=== PATIENT | female | born 1995 | race Caucasian/White ===

== ENCOUNTER 2016-12-26 12:34 | Emergency (ER) | payer OTHER ==
[2016-12-26] MEDS ORDERED: NS 1,000 ML IV ONE ×2 (13:41→15:13)
[2016-12-26] MEDS ORDERED: ZOFRAN IV ONE ×2 (13:41→17:28)
[2016-12-26 14:30] LABS: URINE MICRO REVIEW NEEDED? NO; URINE SOURCE CLEAN CATCH
[2016-12-26 14:32] LABS: MANUAL DIFF NEEDED? NO
[2016-12-26 14:38] LABS: BASO% 0.4 % (0.0-0.8); EOS# 0.08 X1000 (0.0-0.7); EOS% 0.9 % (0.0-10.0); HEMATOCRIT 39.4 % (37.0-47.0); LYMPH# 1.56 X1000 (1.2-3.4); LYMPH% 18.4 % (20.5-51.1); MCH 28.2 PG (27-31); MCV 85.5 FL (81-99); MONO# 0.78 X1000 (0.11-0.59); MONO% 9.2 % (1.7-9.3); MPV 10.1 FL (7.4-10.4); NEUT% 71.1 % (42.2-75.2); PLT 238 X1000 (130-400); RBC 4.61 XMIL (4.2-5.4)
[2016-12-26 14:41] LABS: BILIRUBIN URINE NEGATIVE (NEGATIVE); BLOOD URINE NEGATIVE (NEGATIVE); COLOR YELLOW; GLUCOSE URINE NEGATIVE (NEGATIVE); LEUKOCYTES URINE NEGATIVE (NEGATIVE); NITRITE URINE NEGATIVE (NEGATIVE); PH URINE 5.5; PROTEIN URINE NEGATIVE (NEGATIVE); SP GRAVITY URINE 1.012; TURBIDITY URINE CLEAR (CLEAR); UR EPITHELIAL CELLS <10 /HPF (<10); URINE BACTERIA 2+ /HPF; URINE CULTURE NEEDED? YES; URINE RBC <10 /HPF (<10); URINE WBC <10 /HPF (<10); UROBILINOGEN URINE NORMAL (NORMAL)
[2016-12-26 15:02] LABS: ALBUMIN 4.2 g/dL (3.5-5.0); CALCIUM 9.1 mg/dL (8.8-10.2); POTASSIUM 3.4 mmol/L (3.5-5.1); TOTAL BILIRUBIN 0.39 mg/dL (0.20-1.00); TOTAL PROTEIN 7.8 g/dL (6.3-8.3)
--- NOTE | 2016-12-26 15:14 | Diag Imaging Result Document ---
PROCEDURE NAME: FLAT/UPRIGHT ABD/1 VIEW CHEST - 12/26/2016 FRONTAL CHEST X-RAY AND 2 VIEWS OF THE ABDOMEN: COMPARISON: None. FINDINGS: The chest is clear. There is a nonobstructive bowel gas pattern. No free air or abnormal calcifications. IMPRESSION: No acute disease.
--- NOTE | 2016-12-26 15:35 | PROVIDER DOCUMENTATION ---
HPI-Abdominal Pain/GI Problem - General Chief Complaint: Nausea Stated Complaint: DEHYDRATED Time Seen by Provider: 12/26/16 13:22 Source: patient Allergies/Adverse Reactions: Patient Allergies Allergy/AdvReac Type Severity Reaction Status Date / Time amoxicillin Allergy Unknown Verified 12/26/16 14:18 azithromycin Allergy Unknown Verified 12/26/16 14:18 Home Medications: Home Medication List Medication Instructions Recorded Confirmed Last Taken Type Ondansetron [Zofran] 4 mg PO Q6H PRN PRN #20 tablet 12/26/16 Unknown Rx - History of Present Illness-ABD Nature of Presenting Problems: 21 year old WF presents with c/o 4 day history of nausea, vomiting and abd pain. pt reports she started with nausea Saturday night. was evaluated at an urgent care on Saturday morning, diagnosed with UTI, flu, started on bactrim and tamiflu. she report she worsened, was rte-evaluated at urgent care on Saturday, told to stop the bactrim an discontinue tamiflu. pt reports it has worsened. pt reports she has vomited all day, every day since Saturday. She was seen again at the today, they gil labs, her Cr was elevated and they sent her here for fluids and evaluation. pt reports the abd pain has worsened over the 4 days of vomiting. Abdominal Pain Onset Location: reports: RLQ, LLQ Pain Radiation: reports: no radiation Quality of Pain: reports: aching, cramping, dull Severity in ED: reports: mild Onset/Duration: reports: 4 days ago Timing: reports: still present, constant, getting worse Activities at Onset: reports: none Exposure to sick contacts?: No Modifying Factors: improves with: nothing Associated Symptoms: reports: back/neck pain, fever/chills, nausea, vomiting Last BM: 2 days ago Dark Stools Present?: reports: none noticed. denies: maroon, black, tarry, bright red blood Rectal Bleeding: reports: none. denies: bleeding without stool, bright red blood on paper, blood mixed with stool, blood streaks on stool, bloody diarrhea # of Diarrhea Episodes: 0 Rectal Pain: reports: none Emesis Description: reports: clear Bruising or Bleeding Gums?: No Similar Symptoms Previously?: No Recently seen or treated by another doctor?: No Review of Systems - Adult - REVIEW OF SYSTEMS - ADULT Constitutional: reports: see HPI, chills, fever, fatique Eyes: reports: no symptoms reported. denies: discharge, blurred vision, double vision, redness Ears, Nose, Mouth & Throat: reports: no symptoms reported. denies: ear discharge, ear pain, nose pain, loose teeth, throat pain, throat swelling Cardiovascular: reports: no symptoms reported. denies: chest pain, palpitations , syncope Respiratory: reports: no symptoms reported. denies: chronic cough, cough, shortness of breath, wheezing Gastrointestinal: reports: see HPI, abdominal pain, nausea, poor appetite, vomiting. denies: hematemesis, constipation, diarrhea, difficulty swallowing, frequent heartburn, rectal bleeding Genitourinary: reports: no symptoms reported. denies: dysuria, hematuria, urgency Musculoskeletal: reports: no symptoms reported. denies: bone pain, joint pain, joint swelling, neck pain Integumentary: reports: no symptoms reported. denies: hives, rash, skin sores/ ulcer Neurological: reports: no symptoms reported. denies: ataxia, dizziness/vertigo , syncope Psychiatric: reports: no symptoms reported Endocrine: reports: no symptoms reported Hematologic/Lymphatic: reports: no symptoms reported Allergic/Immunologic: reports: no symptoms reported All Other Systems: Reviewed and Negative Past History - Adult - PAST MEDICAL HISTORY-ADULT Review of Records: reports: Old Records Reviewed, Nursing Assessment Review, Medications Reviewed, Social history reviewed & non-contributory. Major Childhood Illnesses: reports: denies history Cardiovascular: reports: denies history Respiratory: reports: denies history Gastrointestinal: reports: denies history Obstetrical/Gynecological: reports: denies history Genitourinary: reports: denies history Musculoskeletal: reports: denies history Neurological: reports: denies history Endocrine/Immune: reports: denies history Other Conditions: reports: denies history - FAMILY HISTORY Family History: reviewed, not pertinent - SOCIAL HISTORY Smoking: denies, non-smoker Substance Use: none/never Alcohol Use Frequency: sober (former use) Physical Exam-General - PHYSICAL EXAM-ADULT Initial Vital Signs Reviewed: Yes - CONSTITUTIONAL General Appearance: appears well, alert, mild distress. negative: no apparent distress, moderate distress, severe distress, lethargic, slow to respond, obtunded, combative - EYES Eyes: pink conjunctivae, conjuctival exudate. negative: pale conjunctivae, sclera injected, scleral icterus, subconjunctival hemorrhage - HEAD, EARS, NOSE, MOUTH & THROAT HENMT: normocephalic/atraumatic, moist mucous membranes, normal ENT inspection. negative: TMs normal, pharynx normal, pharyngeal erythema, tonsillar exudate - NECK Neck: non-tender, full range of motion, supple, normal inspection. negative: C- spine tenderness, limited range of motion, tender lateral, tender midline - RESPIRATORY Respiratory: chest non-tender, lungs clear, normal breath sounds, no pleuratic chest pain, no respiratory distress, no accessory muscle use. negative: respiratory distress, decreased breath sounds, accessory muscle use, crackles, rales, rhonchi, stridor, wheezing - CARDIOVASCULAR Cardiovascular: normal peripheral pulses, regular rate, rhythm - GASTROINTESTINAL (ABDOMEN) Abdominal Exam: normal bowel sounds, soft, no organomegaly, no pulsatile mass, tenderness (LLQ, RLQ). negative: non tender, abnormal bowel sounds, distended, guarding, rigid, rebound, hernia, mass, hepatomegaly, spleenomegaly, McBurney's point tenderness, Sparrow's sign, obturator sign, prominent aortic pulsations, psoas, Rovsing's sign - GENITOURINARY Female Genitalia/Pelvic Exam: deferred Rectal Exam: deferred Hemoccult Exam: deferred - LYMPHATIC Lymphatic: no adenopathy - MUSCULOSKELETAL Back Exam: normal inspection, no CVA tenderness, no vertebral tenderness, vertebral tenderness (lumbar tenderness). negative: CVA tenderness, decreased range of motion, swelling Extremity: normal range of motion, non-tender, normal gait, normal inspection, no pedal edema, no calf tenderness, normal capillary refill Peripheral Pulses: radial (R): 3+, radial (L): 3+, dorsalis-pedis (R): 3+, dorsalis-pedis (L): 3+ - SKIN Integumentary: normal color, normal turgor, warm/dry. negative: pallor, petechiae, purpura, rash, swelling, tenderness - NEUROLOGIC Neurologic: grossly normal, no motor/sensory deficits - PSYCHIATRIC Psych/Mental Status: normal mood/affect, normal thought content, normal thought process, oriented x 3 Progress - PLAN OF CARE/RESULTS Progress/Plan/Lab Results: Laboratory Tests 12/26/16 12/26/16 12/26/16 14:07 14:07 14:24 WBC 8.46 RBC 4.61 Hgb 13.0 Hct 39.4 MCV 85.5 MCH 28.2 MCHC 33.0 RDW Std Deviation 12.9 Plt Count 238 MPV 10.1 Immature Gran % (Auto) 0.0 Neut % (Auto) 71.1 Lymph % (Auto) 18.4 L [place] % (Auto) 9.2 Eos % (Auto) 0.9 Baso % (Auto) 0.4 Immature Gran # (Auto) 0.00 Neut # (Auto) 6.01 Lymph # (Auto) 1.56 [place] # (Auto) 0.78 H Eos # (Auto) 0.08 Baso # (Auto) 0.03 Sodium 137 Potassium 3.4 L Chloride 98 Carbon Dioxide 25 Anion Gap 14 BUN 20 Creatinine 2.3 H Estimated GFR/1.73 m2 26 BUN/Creatinine Ratio 9 Glucose 93 Calculated Osmolality 276 Calcium 9.1 Total Bilirubin 0.39 AST 14 ALT 10 Alkaline Phosphatase 96 Total Protein 7.8 Albumin 4.2 Globulin 3.6 Albumin/Globulin Ratio 1.2 Amylase 37 Lipase 13 Urine Source CLEAN CATCH Urine Color YELLOW Urine Turbidity CLEAR Urine pH 5.5 Ur Specific [place] 1.012 Urine Protein NEGATIVE Ur Glucose (Stick) NEGATIVE Ur Ketones (Stick) 10 A Urine Blood NEGATIVE Urine Nitrite NEGATIVE Urine Bilirubin NEGATIVE Urobilinogen Dipstick NORMAL Urine Leukocytes NEGATIVE Urine WBC (Auto) <10 Urine RBC (Auto) <10 U Epithel Cells (Auto) <10 Urine Bacteria (Auto) 2+ 12/26/16 16:42 WBC RBC Hgb Hct MCV MCH MCHC RDW Std Deviation Plt Count MPV Immature Gran % (Auto) Neut % (Auto) Lymph % (Auto) [place] % (Auto) Eos % (Auto) Baso % (Auto) Immature Gran # (Auto) Neut # (Auto) Lymph # (Auto) [place] # (Auto) Eos # (Auto) Baso # (Auto) Sodium 140 Potassium 3.6 Chloride 107 Carbon Dioxide 24 L Anion Gap 9 BUN 17 Creatinine 2.1 H Estimated GFR/1.73 m2 29 BUN/Creatinine Ratio 8 Glucose 127 H Calculated Osmolality 283 Calcium 7.9 L Total Bilirubin 0.28 AST 12 ALT 8 L Alkaline Phosphatase 78 Total Protein 6.5 Albumin 3.6 Globulin 2.9 Albumin/Globulin Ratio 1.2 Amylase Lipase Urine Source Urine Color Urine Turbidity Urine pH Ur Specific [place] Urine Protein Ur Glucose (Stick) Ur Ketones (Stick) Urine Blood Urine Nitrite Urine Bilirubin Urobilinogen Dipstick Urine Leukocytes Urine WBC (Auto) Urine RBC (Auto) U Epithel Cells (Auto) Urine Bacteria (Auto) Orders Category Date Time Status ED: Urine Bedside ORDERED Care 12/26/16 13:40 Active Saline Loc DIRECTED Care 12/26/16 13:40 Active NPO Diet 12/26/16 13:40 Active ABDOMEN/PELVIS W/O CONTRAST [CT] Stat Exams 12/26/16 15:36 Draft FLAT/UPRIGHT ABD/1 VIEW CHEST [RAD] Stat Exams 12/26/16 13:48 Draft AMYLASE [CHEM] Stat Lab 12/26/16 14:07 Completed CBC WITH ELECTRONIC DIFF [HEME] Stat Lab 12/26/16 14:07 Completed CMP [COMPREHENSIVE METABOLIC PANEL] [CHEM] Stat Lab 12/26/16 16:42 Completed COMPREHENSIVE METABOLIC PANEL [CHEM] Stat Lab 12/26/16 14:07 Completed LIPASE [CHEM] Stat Lab 12/26/16 14:07 Completed URINALYSIS W/POSS RFLX CULT [URINALYSIS] Stat Lab 12/26/16 14:24 Completed URINE CULTURE [RM] Routine Lab 12/26/16 14:43 Received 0.9% Sodium Chloride Inj [Ns] 1,000 ml Med 12/26/16 13:41 Discontinued IV 999 mls/hr 0.9% Sodium Chloride Inj [Ns] 1,000 ml Med 12/26/16 15:13 Discontinued IV 999 mls/hr Ondansetron [Zofran] Med 12/26/16 13:41 Discontinued 4 mg IV NOW ONE Ondansetron [Zofran] Med 12/26/16 17:28 Once 4 mg IV NOW ONE Vital Signs - 24 hr 12/26/16 12/26/16 12:57 16:15 Temperature 98.1 F Pulse Rate 89 80 Respiratory 18 16 Rate Blood Pressure 122/72 125/78 O2 Sat by Pulse 100 100 Oximetry Reviewed radiology, H&P with Dr. Tenorio, agrees with plan of care and treatment/ follow up. - REASSESSMENT Reassessment #1 Time Reassessed: 15:30 Status: worsening (pt reports her abdominal pain is worsening, LLQ, RLQ tenderness persists.) Reassessment #2 Time Reassessed: 17:31 Status: improving (pt has had no vomiting in the ED and has tolerated fluids, will dc home with close follow up with PMD this week.) - XRAY 1 XRAY Study: Chest, Abdomen Impression: Normal (chest clear, abdomen, no acute disease. per Dr. English) - CT/MRI 1 CT Study: Abdomen, Pelvis Impression: Normal (see radiology report.) Departure - Departure Time of Disposition Order: 17:25 DIAGNOSIS: Dehydration DIAGNOSIS: (Ruled Out): DEION (acute kidney injury) Disposition: HOME 01 Certified Medical Emergency: Emergent Condition: Stable Additional Instructions: Follow up with your primary care this week. Take zofran as needed and drink plenty of fluids. ED Follow Up Instructions: You have been treated by a care provider in the Emergency Department. These instructions are being provided to you so you can have an understanding of how to care for yourself upon discharge. Upon discharge from the Emergency Department, you are responsible for making arrangements for follow-up care by a physician of your choice. Take all prescribed medications as directed. Return to the Emergency Department immediately for any new or worsening symptoms. You may call the Physician Referral phone number at [phone] to obtain a list of Physicians who are taking new patients. Prescriptions: Ondansetron [Zofran] 4 mg PO Q6H PRN PRN #20 tablet PRN Reason: Nausea Referrals: None,PCP [Primary Care Provider] - Tamara Alvarez MD [STAFF PHYSICIAN] - Attestation - Physician/ BETSEY Attestation Patient care was provided by Advanced Practice Provider:: Yes Advanced Practice Provider:: Torsten Kelley Advanced Practice Provider documentation review:: The Mid-level provider documentation, treatment plan and medical decision making was reviewed by the physician who agrees with all treatment and medical decision making by the P.
--- NOTE | 2016-12-26 16:38 | Diag Imaging Result Document ---
PROCEDURE NAME: ABDOMEN/PELVIS W/O CONTRAST - 12/26/2016 CT ABDOMEN AND PELVIS WITHOUT CONTRAST: COMPARISON: None available. FINDINGS: The gallbladder and kidneys are unremarkable. The appendix is normal. No adnexal mass or large cyst can be identified. The urinary bladder is unremarkable. There are no renal or ureteral stones. There is no hydronephrosis. No focal inflammatory change, free abdominal gas, or free fluid is appreciated. The remainder of the solid viscera of the abdomen and pelvis and the remainder of the GI tract is essentially unremarkable. There are shotty mesenteric lymph nodes that are not necessarily pathologic. IMPRESSION: A few shotty mesenteric lymph nodes that are nonspecific and not necessarily pathologic. No definite acute pathology, otherwise.
[2016-12-26 17:13] LABS: ALBUMIN 3.6 g/dL (3.5-5.0); CALCIUM 7.9 mg/dL (8.8-10.2); POTASSIUM 3.6 mmol/L (3.5-5.1); TOTAL BILIRUBIN 0.28 mg/dL (0.20-1.00); TOTAL PROTEIN 6.5 g/dL (6.3-8.3)
[2016-12-26 17:36] VITALS: BP 126/86
== END 2016-12-26 17:42 | disposition home or self-care (01) ==
LOC: ED 12:34
DX: E86.0 Dehydration (principal); R11.2 Nausea with vomiting, unspecified; R50.9 Fever, unspecified; R53.83 Other fatigue; R10.31 Right lower quadrant pain; R10.32 Left lower quadrant pain; M54.5 Low back pain
CPT/HCPCS: 74022; 74176; 80053; 81001; 81025; 82150; 83690; 85025; 87088; 96361; 96374; 96376; J2405; J7030